=== PATIENT | male | born 1950 | race Caucasian/White ===

== ENCOUNTER 2018-07-03 06:18 | Day surgery (SDC) | payer OTHER ==
[2018-07-02 11:31] LABS: Absolute Lymphocytes (CBC) 1.9 K/uL (0.7-4.9); Absolute Monocytes 0.8 K/uL (0.1-1.3); Absolute Neutrophil 5.8 K/uL (1.8-8.0); Basophils % 0.4 % (0-1.3); Eosinophils % 1.5 % (0-4.4); Hematocrit 48.3 % (39.6-49.0); Lymphocytes % 21.7 % (15.3-44.8); MPV 9.8 fL (7.6-11.3); Monocytes % 9.3 % (3.3-12.3); RBC Red Blood Cell Count 5.43 M/uL (4.33-5.43)
--- NOTE | 2018-07-02 11:41 | RAD REPORT ---
EXAM DESCRIPTION: RAD - Chest Pa And Lat (2 Views) - 07/02/2018 11:35 am CLINICAL HISTORY: preop Chest pain. COMPARISON: CHEST PA AND LAT 2 VIEW dated 03/26/2009 FINDINGS: The lungs are clear. Moderate cardiomegaly. No displaced fractures. Small hiatal hernia. IMPRESSION: Moderate cardiomegaly
[2018-07-02 11:46] LABS: Potassium 4.1 mmol/L (3.5-5.1)
[2018-07-03] MEDS ORDERED: HEPA 1000U/500MLS 1,000 UNIT/500 ML BAG IV ONE (06:42)
[2018-07-03] MEDS ORDERED: LIDOCAINE 1% MPF 30 ML VIAL ONE (06:42)
[2018-07-03] MEDS ORDERED: NA CHLORIDE 0.9% 500 ML ONE (06:49)
[2018-07-03] MEDS ORDERED: MIDAZOLAM HCL 2 MG/2 ML INJ ONE ×2 (07:28→07:51)
[2018-07-03] MEDS ORDERED: FENTANYL CITR 100 MCG/2 ML ONE (07:29)
--- NOTE | 2018-07-03 19:02 | OP ---
Surgeon: Ced Christopher MD Field Radio Operator: Aly Marion. Total conscious sedation was 30 minutes. The patient will be cleared for his surgery. Procedures: Left heart catheterization, selective coronary arteriogram. Indication: History of coronary artery disease with need for cardiac clearance prior to knee surgery . Procedure In Detail: Mr. Ledezma is 68. He was prepped and draped in the routine sterile fashion. He had been admitted to the [facility] as an outpatient. He was given 2 mg of Versed for IV sedation. 6-Cuban sheath introduced in the right common femoral artery. An Angio-Seal was used to close the case. 6-Cuban catheters Lalit were used to do the diagnostic angiography. He was found to have a completely occluded LAD right after the first diagonal and septal with collaterals from large diago nal, OM and collaterals also from the PDA off the RCA. His circ, OM, diagonals, and RCA were normal. He was right dominant. There were no complications. Blood Loss: 5 cc. Postoperative Diagnoses: Coronary artery disease, complete occlusion of the left anterior descending with collaterals. Plan: To continue medical therapy. JUAN DIEGO/KAYDEN Voice ID: [id number] Report ID: [id number]
== END 2018-07-03 10:05 | disposition home health service (06) ==
LOC: CCL 06:18
DX: I25.10 Atherosclerotic heart disease of native coronary artery without angina pectoris (principal); I25.82 Chronic total occlusion of coronary artery; I10 Essential (primary) hypertension; E78.2 Mixed hyperlipidemia; Z87.891 Personal history of nicotine dependence; Z88.6 Allergy status to analgesic agent
CPT/HCPCS: 36415; 71046; 80048; 85025; 85610; 85730; 93454; C1760; C1893; J2250 ×2; J3010